=== PATIENT | female | born 1960 | race Caucasian/White ===

== ENCOUNTER 2018-06-02 10:57 | Day surgery (SDC) | payer MEDICARE ==
[~2018-06-02 10:57] MED LIST: Buffered Lidocaine 0.9% SYRIN* 5 ML/SYR SYRINGE INTRADERM ONE
[2018-06-02] MEDS ORDERED: fentaNYL* 50 MCG/ML 2 ML VIAL (100 MCG VIAL) ONE (11:57)
[2018-06-02] MEDS ORDERED: Midazolam* 1 MG/ML 5 ML VIAL (5 MG) ONE (11:57)
[2018-06-02] MEDS ORDERED: Propofol* 10 MG/ML 20 ML BTL IV PUSH ONE ×2 (12:01→12:42)
[2018-06-02] MEDS ORDERED: Ondansetron INJ* 2 MG/ML VIAL ONE (12:01)
[2018-06-02] MEDS ORDERED: Naloxone* 0.4 MG/ML 1 ML VIAL IV PRN (12:53)
[2018-06-02 13:03] VITALS: BP 123/75
--- NOTE | 2018-06-03 04:05 | PRO ---
CC: Dr. Emil Stiles * DATE OF PROCEDURE: 06/02/18 - [facility] PROCEDURE: Colonoscopy with polypectomy and biopsy. REFERRING PROVIDER: Dr. Emil Stiles. INDICATION: Colon cancer screening. The patient reports that in the she had a colonoscopy with possible polyp(s). She also believes she had a colonoscopy around 8 years ago and ulcers were mentioned. She mentions chronic longstanding diarrhea of unclear etiology. MEDICATIONS GIVEN: Anesthesia. DESCRIPTION OF PROCEDURE: Full disclosure of risks were reviewed with the patient as detailed on the consent form. The patient was placed in the left lateral decubitus position and monitored by the anesthesia team. After anorectal examination was performed, the adult colonoscope was inserted into the rectum and advanced under direct vision to the level of the terminal ileum. The cecum was fully inflated allowing complete view including the medial wall between the IC valve and the appendiceal orifice. Quality of the prep was good. Careful inspection was made as the colonoscope was withdrawn and retroflex view of the rectum was performed. Findings and interventions are described below. FINDINGS: Anorectal exam was unremarkable. The scope was slowly advanced to the cecum. The terminal ileum was intubated x5 cm and was normal in appearance. The scope was then withdrawn into the cecum. There were scattered areas of erythema with tiny erosions beginning around hepatic flexure and extending to rectum. Cecum appeared to be largely spared. Biopsies were obtained from different segments of the colon. In the rectum at around 20 cm, there was an 8 to 10-mm sessile polyp that was removed with snare cautery. A very small residual piece of tissue from the polyp was fulgurated with tip of the snare with good effect. Retroflexion was performed in the rectum and a small area of slightly nodular inflammation was noted proximal to the dentate line. This was biopsied. There were hypertrophied anal papillae and small internal hemorrhoids. Scope was then withdrawn from the patient. The patient tolerated the procedure well and was recovered in the GI recovery area. IMPRESSION: 1. An 8 to 10-mm rectal polyp removed as above. 2. Mild erythema and tiny erosions extending from rectum to hepatic flexure area. Terminal ileum and cecum were normal. Appearance suggestive of mild colitis, favor ulcerative colitis. 3. Internal hemorrhoids and hypertrophied anal papillae. 4. Mild nodular area of inflammation in the rectum seen on retroflexion, which was biopsied. FOLLOWUP: 1. Await pathology of polyp to determine timing of repeat colonoscopy for CRC screening. 3. Colonoscopy findings and history of diarrhea are most consistent with a diagnosis of ulcerative colitis. I reviewed this with the patient after the procedure. She thinks that she might have been told this a long time ago as this diagnosis sounds familiar. Will await pathology for confirmation and schedule follow-up visit to discuss further. Thank you very much for this referral. [id number]/[facility] #: [id number] IVAN
== END 2018-06-02 13:21 | disposition home or self-care (01) ==
LOC: OR 10:57
PROVIDERS: ATTEND Internal Medicine Gastroenterology
DX: K57.90 Diverticulosis of intestine, part unspecified, without perforation or abscess without bleeding (principal); K52.9 Noninfective gastroenteritis and colitis, unspecified; K63.5 Polyp of colon; J45.909 Unspecified asthma, uncomplicated; E11.9 Type 2 diabetes mellitus without complications; Z79.84 Long term (current) use of oral hypoglycemic drugs
CPT/HCPCS: 88305; J2250; J2405; J2704; J3010

== ENCOUNTER 2021-09-03 11:31 | Inpatient (IN) ==
[2021-09-03 13:55] LABS: ABS Eosinophils 0.2 10^3/ul (0-0.6); ABS Lymphocytes 2.5 10^3/ul (1.0-4.8); ABS Monocytes 0.5 10^3/ul (0-0.8); ABS Neutrophils 3.4 10^3/ul (1.5-7.7); Eosinophil % 3.7 %; Hematocrit 35 % (35-47); Hemoglobin 11.6 g/dL (12.0-16.0); Lymphocyte % 37.3 %; Mean Corpuscular HGB Conc 34 g/dL (31-36); Mean Corpuscular Hemoglobin 28 pg (27-31); Mean Corpuscular Volume 83 fL (80-97); Mean Platelet Volume 8.3 fL (7.4-10.4); Platelet Count 168 10^3/uL (150-450); Red Blood Count 4.17 10^6 /uL (3.70-4.87); Red Cell Distribution Width 15 % (10-15); White Blood Count 6.6 10^3/uL (3.5-10.8)
[2021-09-03 14:12] LABS: ALT 30 U/L (7-52); AST 33 U/L (13-39); Albumin 4.4 g/dL (3.2-5.2); Albumin/Globulin Ratio 1.4 (1-3); Alkaline Phosphatase 55 U/L (35-149); Anion Gap 8 mmol/L (2-11); Blood Urea Nitrogen 18 mg/dL (6-24); C Reactive Protein < 1.00 mg/L (<8.01); CO2 Carbon Dioxide 31 mmol/L (22-32); Calcium 10.9 mg/dL (8.6-10.3); Chloride 99 mmol/L (101-111); Globulin 3.1 g/dL (2-4); Glucose 108 mg/dL (70-100); Potassium 3.9 mmol/L (3.5-5.0); Sodium 138 mmol/L (135-145); Total Protein 7.5 g/dL (6.4-8.9); eGFR CKD-EPI 88.8 (>60)
[2021-09-03 16:11] LABS: Urine Appearance Clear; Urine Bilirubin Negative (Negative); Urine Blood Negative (Negative); Urine Color Yellow; Urine Glucose Negative (Negative); Urine Ketones Negative (Negative); Urine Nitrite Negative (Negative); Urine Protein Negative (Negative); Urine Specific Gravity 1.011 (1.002-1.030); Urine Urobilinogen Negative (Negative)
[2021-09-03] MEDS ORDERED: Albuterol HFA INHALER 8 gm MDI INH PRN (19:21)
[2021-09-03] MEDS ORDERED: Magnesium Hydroxide LIQ 30 ML UDC PO PRN (19:35)
[2021-09-03] MEDS ORDERED: Senna TAB 8.6 mg TAB PO PRN (19:35)
[2021-09-03] MEDS ORDERED: Polyethylene Glycol 3350 17 GM PACKET PO PRN (19:35)
[2021-09-03] MEDS ORDERED: Dextrose 50% Syringe 50 ml 25 GM/50 ML SYRINGE IV PUSH PRN (19:45)
[2021-09-03] MEDS ORDERED: MESALAMINE 1.2 GM PO SCH (21:00)
[2021-09-04] MEDS: Enoxaparin 40 MG/0.4 ML SYR SUBCUT SCH (10:36)
[2021-09-04 11:24] LABS: Vitamin D Total 25(OH) 53.4 ng/mL (20-50)
[2021-09-04 13:28] LABS: Calcium (PTH Intact) 11.2 mg/dL (8.6-10.3)
[2021-09-04 21:46] LABS: INR 1.17 (0.86-1.15)
[2021-09-05 05:51] LABS: Calcium 10.8 mg/dL (8.6-10.3); Potassium 3.5 mmol/L (3.5-5.0); eGFR CKD-EPI 96.3 (>60)
[2021-09-05] MEDS: Enoxaparin 40 MG/0.4 ML SYR SUBCUT SCH (08:37)
[2021-09-05 15:37] LABS: Activated Partial Thrombo Time 36.6 seconds (26.0-38.0); INR 1.13 (0.86-1.15)
[2021-09-06] MEDS ORDERED: Lactated Ringers 1000 ml BAG 1,000 ML IV SCH (06:00)
[2021-09-06 08:31] LABS: ABS Eosinophils 0.2 10^3/ul (0-0.6); ABS Monocytes 0.4 10^3/ul (0-0.8); Eosinophil % 3.6 %; Hematocrit 34 % (35-47); Hemoglobin 11.5 g/dL (12.0-16.0); Lymphocyte % 35.2 %; Mean Corpuscular HGB Conc 34 g/dL (31-36); Mean Corpuscular Hemoglobin 28 pg (27-31); Mean Corpuscular Volume 83 fL (80-97); Mean Platelet Volume 7.9 fL (7.4-10.4); Platelet Count 158 10^3/uL (150-450); Red Blood Count 4.13 10^6 /uL (3.70-4.87); Red Cell Distribution Width 15 % (10-15); White Blood Count 5.6 10^3/uL (3.5-10.8)
[2021-09-06 08:48] LABS: Albumin 4.2 g/dL (3.2-5.2); Albumin/Globulin Ratio 1.4 (1-3); Calcium 10.7 mg/dL (8.6-10.3); Potassium 3.8 mmol/L (3.5-5.0); Total Bilirubin 0.6 mg/dL (0.2-1.0); Total Protein 7.2 g/dL (6.4-8.9); eGFR CKD-EPI 97.9 (>60)
[2021-09-06] MEDS: Enoxaparin 40 MG/0.4 ML SYR SUBCUT SCH (10:46)
[2021-09-07] MEDS: Enoxaparin 40 MG/0.4 ML SYR SUBCUT SCH (08:40)
[2021-09-08] MEDS: Enoxaparin 40 MG/0.4 ML SYR SUBCUT SCH (09:32)
[2021-09-08 11:43] LABS: Hematocrit 36 % (35-47); Hemoglobin 11.9 g/dL (12.0-16.0); Mean Corpuscular HGB Conc 33 g/dL (31-36); Mean Corpuscular Hemoglobin 27 pg (27-31); Mean Corpuscular Volume 82 fL (80-97); Mean Platelet Volume 7.8 fL (7.4-10.4); Platelet Count 168 10^3/uL (150-450); Red Blood Count 4.38 10^6 /uL (3.70-4.87); Red Cell Distribution Width 15 % (10-15)
[2021-09-08 12:00] LABS: Calcium 11.1 mg/dL (8.6-10.3); Potassium 3.8 mmol/L (3.5-5.0); eGFR CKD-EPI 99.6 (>60)
[2021-09-08] MEDS ORDERED: Fluticasone NASAL SPRAY 50MCG 16 gm SPRAY BTL BOTH NARES PRN (17:28)
[2021-09-08] MEDS ORDERED: Saline NASAL SPRAY 0.65% BTL BOTH NARES PRN (17:28)
[2021-09-09] MEDS ORDERED: Buffered Lidocaine 1% SYRIN 1 ml INTRADERM ONE (06:00)
[2021-09-09] MEDS ORDERED: Lactated Ringers 1000 ml BAG 1,000 ML IV SCH (06:00)
[2021-09-09] MEDS: Enoxaparin 40 MG/0.4 ML SYR SUBCUT SCH (08:25)
[2021-09-09 11:46] VITALS: BP 129/74
== END 2021-09-09 14:02 | disposition swing bed (61) | DRG 551 ==
LOC: ED 11:31 → EDHOLD 19:35 → SUATTDRO 19:35 → EDHOLD 22:16 → MED 22:54
PROVIDERS: ADMIT Physician Assistant; ATTEND Hospitalist

== ENCOUNTER 2021-09-09 14:27 | Inpatient (IN) ==
[2021-09-09] MEDS ORDERED: Fluticasone NASAL SPRAY 50MCG 16 gm SPRAY BTL BOTH NARES PRN (15:37)
[2021-09-09] MEDS ORDERED: Magnesium Hydroxide LIQ 30 ML UDC PO PRN (15:38)
[2021-09-09] MEDS ORDERED: Saline NASAL SPRAY 0.65% BTL BOTH NARES PRN (15:39)
[2021-09-09] MEDS ORDERED: Senna TAB 8.6 mg TAB PO PRN (15:39)
[2021-09-09] MEDS ORDERED: Albuterol HFA INHALER 8 gm MDI INH PRN (15:40)
[2021-09-09] MEDS ORDERED: Dextrose 50% Syringe 50 ml 25 GM/50 ML SYRINGE IV PUSH PRN (15:41)
[2021-09-10] MEDS: Enoxaparin 40 MG/0.4 ML SYR SUBCUT SCH (08:24)
[2021-09-11] MEDS: Enoxaparin 40 MG/0.4 ML SYR SUBCUT SCH (08:51)
[2021-09-12] MEDS: Polyethylene Glycol 3350 17 GM PACKET PO PRN (08:35)
[2021-09-12] MEDS: Enoxaparin 40 MG/0.4 ML SYR SUBCUT SCH (08:38)
[2021-09-12] MEDS: MESALAMINE 1.2 GM PO SCH (20:50)
[2021-09-13] MEDS: Enoxaparin 40 MG/0.4 ML SYR SUBCUT SCH (08:12)
[2021-09-13] MEDS: MESALAMINE 1.2 GM PO SCH (09:38)
[2021-09-14] MEDS: Enoxaparin 40 MG/0.4 ML SYR SUBCUT SCH (09:00)
[2021-09-15] MEDS: Enoxaparin 40 MG/0.4 ML SYR SUBCUT SCH (07:56)
[2021-09-16] MEDS: Enoxaparin 40 MG/0.4 ML SYR SUBCUT SCH (10:16)
[2021-09-17] MEDS: Enoxaparin 40 MG/0.4 ML SYR SUBCUT SCH (08:42)
[2021-09-18] MEDS: Enoxaparin 40 MG/0.4 ML SYR SUBCUT SCH (08:42)
[2021-09-18] MEDS: Polyethylene Glycol 3350 17 GM PACKET PO PRN (08:42)
[2021-09-18] MEDS: Insulin GLARGINE 100 un/ml 10 ml VIAL SUBCUT SCH (12:19)
[2021-09-18] MEDS: Nystatin TOP POWDER 15 GM BTL TOPICAL SCH (21:24)
[2021-09-19] MEDS: Enoxaparin 40 MG/0.4 ML SYR SUBCUT SCH (08:24)
[2021-09-19] MEDS: Nystatin TOP POWDER 15 GM BTL TOPICAL SCH ×2 (08:25→22:06)
[2021-09-19] MEDS: Polyethylene Glycol 3350 17 GM PACKET PO PRN (08:25)
[2021-09-19] MEDS: Insulin GLARGINE 100 un/ml 10 ml VIAL SUBCUT SCH (08:26)
[2021-09-19] MEDS ORDERED: Dextrose 50% Syringe 50 ml 25 GM/50 ML SYRINGE IV PUSH PRN (09:02)
[2021-09-20] MEDS: Nystatin TOP POWDER 15 GM BTL TOPICAL SCH ×2 (08:15→23:09)
[2021-09-20] MEDS: Insulin GLARGINE 100 un/ml 10 ml VIAL SUBCUT SCH (08:17)
[2021-09-20] MEDS: Enoxaparin 40 MG/0.4 ML SYR SUBCUT SCH (08:18)
[2021-09-21] MEDS: Insulin GLARGINE 100 un/ml 10 ml VIAL SUBCUT SCH (08:26)
[2021-09-21] MEDS: Enoxaparin 40 MG/0.4 ML SYR SUBCUT SCH (08:28)
[2021-09-21] MEDS: Nystatin TOP POWDER 15 GM BTL TOPICAL SCH ×2 (11:11→20:39)
[2021-09-22] MEDS: Nystatin TOP POWDER 15 GM BTL TOPICAL SCH (07:50)
[2021-09-22 08:38] LABS: ABS Eosinophils 0.2 10^3/ul (0-0.6); ABS Lymphocytes 2.2 10^3/ul (1.0-4.8); ABS Monocytes 0.3 10^3/ul (0-0.8); ABS Neutrophils 2.2 10^3/ul (1.5-7.7); Eosinophil % 3.7 %; Hematocrit 36 % (35-47); Lymphocyte % 44.7 %; Mean Corpuscular HGB Conc 33 g/dL (31-36); Mean Corpuscular Hemoglobin 28 pg (27-31); Mean Corpuscular Volume 84 fL (80-97); Mean Platelet Volume 8.3 fL (7.4-10.4); Nucleated Red Blood Cells % 0.1; Platelet Count 145 10^3/uL (150-450); Red Cell Distribution Width 15 % (10-15); White Blood Count 4.9 10^3/uL (3.5-10.8)
[2021-09-22 08:43] LABS: Calcium 10.6 mg/dL (8.6-10.3); eGFR CKD-EPI 102.5 (>60)
[2021-09-22] MEDS: Insulin GLARGINE 100 un/ml 10 ml VIAL SUBCUT SCH (09:41)
[2021-09-22] MEDS: Enoxaparin 40 MG/0.4 ML SYR SUBCUT SCH (09:43)
[2021-09-22 11:24] VITALS: BP 146/83
[2021-09-23] MEDS ORDERED: Buffered Lidocaine 1% SYRIN 1 ml INTRADERM ONE (06:00)
[2021-09-23] MEDS ORDERED: Lactated Ringers 1000 ml BAG 1,000 ML IV SCH (06:00)
[2021-09-23] MEDS ORDERED: diPHENhydraMINE IV 50 MG/ML 1 ml VIAL (BENADRYL) IV PRN (07:55)
[2021-09-23] MEDS ORDERED: HYDROmorphone 1 MG/1 ML SYRINGE IV PRN (07:55)
[2021-09-23] MEDS ORDERED: Naloxone 0.4 mg VIAL 0.4 mg/ml 1 ml VIAL IV PRN (07:55)
[2021-09-23] MEDS ORDERED: Prochlorperazine 5 mg/ml 2 ml VIAL (10 mg) IV PRN (07:55)
== END 2021-09-22 10:22 | disposition short-term general hospital (02) | DRG 551 ==
LOC: SUATTDRO 14:29 → MED 14:29
PROVIDERS: ADMIT Hospitalist; ATTEND Internal Medicine

== ENCOUNTER 2021-09-25 15:39 | Inpatient (IN) ==
[2021-09-26] MEDS ORDERED: Senna TAB 8.6 mg TAB PO PRN (11:28)
[2021-09-26] MEDS ORDERED: Dextrose 50% Syringe 50 ml 25 GM/50 ML SYRINGE IV PUSH PRN (11:38)
[2021-09-26] MEDS: Insulin GLARGINE 100 un/ml 10 ml VIAL SUBCUT SCH (21:19)
[2021-09-27 06:21] LABS: ABS Eosinophils 0.2 10^3/ul (0-0.6); ABS Lymphocytes 1.9 10^3/ul (1.0-4.8); ABS Monocytes 0.8 10^3/ul (0-0.8); ABS Neutrophils 4.6 10^3/ul (1.5-7.7); Eosinophil % 2.9 %; Hematocrit 29 % (35-47); Hemoglobin 9.9 g/dL (12.0-16.0); Lymphocyte % 25.7 %; Mean Corpuscular HGB Conc 34 g/dL (31-36); Mean Corpuscular Hemoglobin 28 pg (27-31); Mean Corpuscular Volume 83 fL (80-97); Mean Platelet Volume 7.9 fL (7.4-10.4); Nucleated Red Blood Cells % 0.1; Platelet Count 168 10^3/uL (150-450); Red Blood Count 3.56 10^6 /uL (3.70-4.87); Red Cell Distribution Width 15 % (10-15); White Blood Count 7.5 10^3/uL (3.5-10.8)
[2021-09-27 07:29] LABS: Albumin 3.6 g/dL (3.2-5.2)
[2021-09-27 07:31] LABS: Potassium 3.7 mmol/L (3.5-5.0); Total Bilirubin 0.8 mg/dL (0.2-1.0)
[2021-09-27 07:35] LABS: Albumin/Globulin Ratio 1.3 (1-3); Globulin 2.8 g/dL (2-4); Total Protein 6.4 g/dL (6.4-8.9)
[2021-09-27 07:45] LABS: eGFR CKD-EPI 102.5 (>60)
[2021-09-27] MEDS: Insulin GLARGINE 100 un/ml 10 ml VIAL SUBCUT SCH (21:40)
[2021-09-28] MEDS: Insulin GLARGINE 100 un/ml 10 ml VIAL SUBCUT SCH (21:31)
[2021-09-29 06:31] LABS: ABS Eosinophils 0.1 10^3/ul (0-0.6); ABS Lymphocytes 1.7 10^3/ul (1.0-4.8); ABS Monocytes 0.5 10^3/ul (0-0.8); ABS Neutrophils 2.8 10^3/ul (1.5-7.7); Eosinophil % 2.8 %; Hematocrit 28 % (35-47); Hemoglobin 9.6 g/dL (12.0-16.0); Lymphocyte % 32.3 %; Mean Corpuscular HGB Conc 34 g/dL (31-36); Mean Corpuscular Hemoglobin 28 pg (27-31); Mean Corpuscular Volume 83 fL (80-97); Mean Platelet Volume 7.5 fL (7.4-10.4); Platelet Count 189 10^3/uL (150-450); Red Cell Distribution Width 15 % (10-15); White Blood Count 5.1 10^3/uL (3.5-10.8)
[2021-09-29 06:47] LABS: Activated Partial Thrombo Time 36.5 seconds (26.0-38.0); INR 1.28 (0.86-1.15)
[2021-09-29] MEDS: Insulin GLARGINE 100 un/ml 10 ml VIAL SUBCUT SCH (20:50)
[2021-09-30] MEDS: Heparin 5000 UNITS/ML 1 mL VIAL SUBCUT SCH ×2 (10:54→20:43)
[2021-09-30] MEDS: Insulin GLARGINE 100 un/ml 10 ml VIAL SUBCUT SCH (21:01)
[2021-10-01] MEDS: Heparin 5000 UNITS/ML 1 mL VIAL SUBCUT SCH ×2 (08:25→20:59)
[2021-10-01] MEDS: Insulin GLARGINE 100 un/ml 10 ml VIAL SUBCUT SCH (21:17)
[2021-10-02 05:48] LABS: ABS Eosinophils 0.2 10^3/ul (0-0.6); ABS Monocytes 0.4 10^3/ul (0-0.8); ABS Neutrophils 2.7 10^3/ul (1.5-7.7); Eosinophil % 4.4 %; Hematocrit 28 % (35-47); Hemoglobin 9.3 g/dL (12.0-16.0); Lymphocyte % 37.2 %; Mean Corpuscular HGB Conc 34 g/dL (31-36); Mean Corpuscular Hemoglobin 28 pg (27-31); Mean Corpuscular Volume 83 fL (80-97); Mean Platelet Volume 7.5 fL (7.4-10.4); Platelet Count 220 10^3/uL (150-450); Red Blood Count 3.33 10^6 /uL (3.70-4.87); Red Cell Distribution Width 14 % (10-15); White Blood Count 5.3 10^3/uL (3.5-10.8)
[2021-10-02] MEDS: Heparin 5000 UNITS/ML 1 mL VIAL SUBCUT SCH ×2 (08:12→21:03)
[2021-10-02] MEDS: Insulin GLARGINE 100 un/ml 10 ml VIAL SUBCUT SCH (21:24)
[2021-10-03 04:21] VITALS: BP 112/80
[2021-10-03] MEDS: Heparin 5000 UNITS/ML 1 mL VIAL SUBCUT SCH (08:51)
== END 2021-10-03 12:33 | disposition home or self-care (01) | DRG 949 ==
LOC: PMRU 09-26 11:21
PROVIDERS: ADMIT Physical Medicine & Rehabilitation; ATTEND Physical Medicine & Rehabilitation